=== PATIENT | female | born 1965 | race African-American/Black ===

== ENCOUNTER 2019-07-10 13:46 | Emergency (ER) | payer OTHER ==
[~2019-07-10] VITALS: Ht 172.7 cm; Wt 122.5 kg
[2019-07-10 13:52] VITALS: BP 151/92; Ht 172.7 cm; Wt 122.5 kg
== END 2019-07-10 15:06 | disposition left against medical advice (07) ==
LOC: ED 13:46
DX: Z53.21 Procedure and treatment not carried out due to patient leaving prior to being seen by health care provider (principal)